=== PATIENT | male | born 1975 | race Caucasian/White ===

== ENCOUNTER 2019-02-06 15:32 | Emergency (ER) | payer SELFPAY ==
[~2019-02-06] VITALS: Ht 167.6 cm; Wt 86.4 kg
[2019-02-06] MEDS ORDERED: SOD CHLORIDE 0.9% 1,000 ML IV STA (15:33)
[2019-02-06 15:42] VITALS: Ht 167.6 cm; Wt 86.4 kg
[2019-02-06 20:45] VITALS: BP 121/77; PULSE 83; RESP 16
== END 2019-02-06 21:09 | disposition home or self-care (01) ==
LOC: E/R 15:32
DX: D69.6 Thrombocytopenia, unspecified (principal); F10.921 Alcohol use, unspecified with intoxication delirium
CPT/HCPCS: 36415; 70450; 80048; 80185; 80307; 85025; 99285; J7030